=== PATIENT | male | born 1970 | race Caucasian/White ===

== ENCOUNTER 2018-03-27 16:32 | Emergency (ER) | payer BC ==
[2018-03-27 17:07] LABS: Absolute Monocytes 0.5 K/uL (0.1-1.3); Absolute Neutrophil 4.2 K/uL (1.8-8.0); Basophils % 0.6 % (0-1.3); Eosinophils % 0.2 % (0-4.4); Hematocrit 38.6 % (39.6-49.0); Lymphocytes % 29.3 % (15.3-44.8); MCH 29.9 pg (27.0-35.0); MCV 91.9 fL (80-100); MPV 8.1 fL (7.6-11.3); Monocytes % 7.7 % (3.3-12.3)
[2018-03-27 17:13] LABS: Protime INR 1.02
--- NOTE | 2018-03-27 17:17 | RAD REPORT ---
EXAM DESCRIPTION: CT - Head Brain Wo Cont - 03/27/2018 5:01 pm CLINICAL HISTORY: Dizziness and numbness COMPARISON: None. TECHNIQUE: Computed axial tomography of the head was obtained. IV contrast was not requested. All CT scans are performed using dose optimization technique as appropriate and may include automated exposure control or mA/KV adjustment according to patient size. FINDINGS: An intracranial bleed is not seen . The ventricles are normal in caliber. No extra-axial fluid collection is noted. Fluid within the sinuses/ mastoids is not seen. IMPRESSION: No acute intracranial abnormality is seen. If patient's symptoms persist MRI of the bra in would be recommended.
--- NOTE | 2018-03-27 17:23 | EKG ---
Test Date: 2018-03-27 Test Time: 16:51:30 Highway Inspector: YUMI MEASUREMENT RESULTS: Intervals: Rate: 85 MD: 128 QRSD: 106 QT: 374 QTc: 445 [place]: P: 32 MD: 128 QRS: 31 T: 29 INTERPRETIVE STATEMENTS: Normal sinus rhythm Normal ECG Compared to ECG 05/20/2014 16:13:06 No significant changes Electronically Signed On 03-27-18 17:22:44 CDT by Todd Pacheco
[2018-03-27 17:28] LABS: BUN Blood Urea Nitrogen 10 mg/dL (7-18); Bicarbonate 28 mmol/L (21-32); Glucose Level 101 mg/dL (74-106); Magnesium 2.1 mg/dL (1.8-2.4); Potassium 3.2 mmol/L (3.5-5.1); Sodium Level 137 mmol/L (136-145)
--- NOTE | 2018-03-27 17:54 | RAD REPORT ---
EXAM DESCRIPTION: MRI - Brain Wo Cont - 03/27/2018 5:23 pm CLINICAL HISTORY: Slurred speech COMPARISON: Head CT March 27, 2018 TECHNIQUE: Axial, sagittal, and coronal magnetic images of the brain were obtained. Contrast was not requested FINDINGS: No abnormal signal is present within the brain. Diffusion-weighted/ADC mapping does not reveal evidence of acute infarction. The ventricles are normal caliber. An extra-axial fluid collection is not present The sinuses and mastoids are clear. IMPRESSION: Unremarkable unenhanced brain MRI
[2018-03-27] MEDS ORDERED: POTASSIUM CL SA 10 MEQ TAB PO ONE (18:16)
--- NOTE | 2018-03-27 18:29 | EDPHYS ---
Physician Documentation [facility] Name: Sandro Ramirez Age: 47 yrs Sex: Male : 1970 Arrival Date: 03/27/2018 Time: 16:35 Bed 8 Private MD: Elizabeth Reeder H ED Physician Maykel العلي HPI: 03/27 16:53 This 47 yrs old Male presents to ER via Ambulatory with complaints of rn Dizziness, Headache, High Blood Pressure. 16:53 The patient presents with dizziness, generalized weakness, lightheadedness, feeling off rn balance. Onset: The symptoms/episode began/occurred this morning, at 08:30. Modifying factors: The symptoms are alleviated by nothing, the symptoms are aggravated by changing position. Severity of symptoms: At their worst the symptoms were moderate in the emergency department the symptoms have improved. The patient has not experienced similar symptoms in the past. Reports dizziness, off balance, headache, felt like was going to pass out, began this morning around [id number] at work, thought it would go away, reports tingling to perioral region and right arm feels heavy. . Historical: - Allergies: 16:36 No Known Allergies; sg - Home Meds: 16:36 Lisinopril Oral [Active]; sg - PMHx: 16:36 Hypertension; High Cholesterol; sg - PSHx: 16:36 None; sg - Immunization history:: Adult Immunizations up to date. - Social history:: Smoking status: Patient/guardian denies using tobacco, the patient reports quitting approximately 8 years ago. - Ebola Screening: : Patient negative for fever greater than or equal to 101.5 degrees Fahrenheit, and additional compatible Ebola Virus Disease symptoms Patient denies exposure to infectious person Patient denies travel to an Ebola-affected area in the 21 days before illness onset No symptoms or risks identified at this time. - Family history:: not pertinent. - Hospitalizations: : No recent hospitalization is reported. ROS: 16:53 Constitutional: Negative for fever, chills, and weight loss, Eyes: Negative for injury, rn pain, redness, and discharge, Neck: Negative for injury, pain, and swelling, Cardiovascular: Negative for chest pain, palpitations, and edema, Respiratory: Negative for shortness of breath, cough, wheezing, and pleuritic chest pain, Abdomen/GI: Negative for abdominal pain, nausea, vomiting, diarrhea, and constipation, Back: Negative for injury and pain, MS/Extremity: Negative for injury and deformity, Skin: Negative for injury, rash, and discoloration, Neuro: Negative for seizure Exam: 16:53 Constitutional: This is a well developed, well nourished patient who is awake, alert, rn and in no acute distress. Head/Face: Normocephalic, atraumatic. Eyes: Pupils equal round and reactive to light, extra-ocular motions intact. Lids and lashes normal. Conjunctiva and sclera are non-icteric and not injected. Cornea within normal limits. Periorbital areas with no swelling, redness, or edema. Cardiovascular: tachycardic, regular, no murmur Respiratory: Lungs have equal breath sounds bilaterally, clear to auscultation and percussion. No rales, rhonchi or wheezes noted. No increased work of breathing, no retractions or nasal flaring. Abdomen/GI: Soft, non-tender, with normal bowel sounds. No distension or tympany. No guarding or rebound. No evidence of tenderness throughout. MS/ Extremity: Pulses equal, no cyanosis. Neurovascular intact. Full, normal range of motion. Equal circumference. Vital Signs: 16:37 BP 174 / 102; Pulse 100; Resp 18; Temp 99.5; Pulse Ox 100% on R/A; Weight 90.72 kg (R); sg Height 6 ft. 1 in. (185.42 cm); Pain 7/10; 16:52 BP 158 / 92; Pulse 102 MON; Resp 13; Pulse Ox 100% on R/A; sv 17:28 BP 146 / 90; Pulse 75 MON; Resp 15; Pulse Ox 99% on R/A; sv 17:43 BP 135 / 96; Pulse 69; Resp 15; Pulse Ox 99% on R/A; dh3 18:41 BP 141 / 96; Pulse 69; Resp 18; Pulse Ox 100% ; sv 16:37 Body Mass Index 26.39 (90.72 kg, 185.42 cm) sg 16:52 Sinus tachycardia sv 17:28 Sinus Rhythm sv MDM: 16:40 Patient medically screened. rn 18:28 Differential diagnosis: cardiac arrhythmia, CVA, generalized weakness, rn hyperventilation, hypovolemia, idiopathic dizziness, near-syncope, TIA, vertigo. Data reviewed: vital signs, nurses notes, lab test result(s), EKG, radiologic studies, CT scan, MRI, and as a result, I will discharge patient. Counseling: I had a detailed discussion with the patient and/or guardian regarding: the historical points, exam findings, and any diagnostic results supporting the discharge/admit diagnosis, lab results, radiology results, the need for outpatient follow up, to return to the emergency department if symptoms worsen or persist or if there are any questions or concerns that arise at home. Response to treatment: the patient's symptoms have markedly improved after treatment, patient is well hydrated. and as a result, I will discharge patient. Special discussion: I discussed with the patient/guardian in detail that at this point there is no indication for admission to the hospital. It is understood, however, that if the symptoms persist or worsen the patient needs to return immediately for re-evaluation. 03/27 16:50 Order name: Basic Metabolic Panel; Complete Time: 17:03/27 16:50 Order name: CBC with Diff; Complete Time: 17:03/27 16:50 Order name: Magnesium; Complete Time: 17:03/27 16:50 Order name: Protime (+inr); Complete Time: 17:03/27 16:50 Order name: Ptt, Activated; Complete Time: :03/27 16:50 Order name: Troponin (emerg Dept Use Only); Complete Time: 17:50 03/27 16:50 Order name: CT Head Brain wo Cont; Complete Time: 17:03/27 16:50 Order name: EKG; Complete Time: 16:50 03/27 16:50 Order name: Cardiac monitoring; Complete Time: 16:53 03/27 16:50 Order name: EKG - Nurse/Tech; Complete Time: 16:59 03/27 16:50 Order name: IV Saline Lock; Complete Time: 16:59 03/27 16:51 Order name: MRI - Brain Wo Cont; Complete Time: 17:03/27 16:52 Order name: Glucose, Ancillary Testing; Complete Time: 17: EDMS 03/27 16:50 Order name: Labs collected and sent; Complete Time: 16:59 03/27 16:50 Order name: NPO; Complete Time: 16:52 rn 03/27 16:50 Order name: O2 Per Protocol; Complete Time: 16:52 rn 03/27 16:50 Order name: O2 Sat Monitoring; Complete Time: 16:52 rn Administered Medications: 18:29 Drug: Potassium Chloride 40 mEq Route: PO; sv 18:29 Follow up: Response: No adverse reaction sv Point of Care Testing: Blood Glucose: 16:50 Blood Glucose: 114 mg/dL; sv Ranges: Critical Glucose Levels:Adult <50 mg/dl or >400 mg/dl <40 mg/dl or >180 mg/dl Disposition: 03/27/18 18:29 Discharged to Home. Impression: Hypokalemia, Paresthesia of skin, Near Syncope. - Condition is Stable. - Discharge Instructions: Hypertension, Near-Syncope, Paresthesia, Hypokalemia. - Medication Reconciliation Form, Thank You Letter, Antibiotic Education, Prescription Opioid Use form. - Follow up: Elizabeth Reeder DO; When: As needed; Reason: Recheck today's complaints, Re-evaluation by your physician. - Problem is new. - Symptoms have improved. Signatures: Dispatcher [employer] EDMS Pearl Lowe RN RN sv Gay, Steven, RN RN sg Maykel العلي MD MD returned goods sorter: (The following items were deleted from the chart) 18:42 18:29 03/27/2018 18:29 Discharged to Home. Impression: Hypokalemia; Paresthesia of sv skin; Near Syncope. Condition is Stable. Forms are Medication Reconciliation Form, Thank You Letter, Antibiotic Education, Prescription Opioid Use. Follow up: Elizabeth Reeder; When: As needed; Reason: Recheck today's complaints, Re-evaluation by your physician. Problem is new. Symptoms have improved. rn
--- NOTE | 2018-03-27 18:29 | ER ---
Nurse's Notes [facility] Name: Sandro Ramirez Age: 47 yrs Sex: Male : 1970 Arrival Date: 03/27/2018 Time: 16:35 Bed 8 Private MD: Elizabeth Reeder H Diagnosis: Hypokalemia;Paresthesia of skin;Near Syncope Presentation: 03/27 16:38 Presenting complaint: Patient states: Dizziness, Midsternal CP that started today, sg episodes of forgetfullness today at work, tingling in the lips that happened around 1100 today. Transition of care: patient was not received from another setting of care. Onset of symptoms was March 27, 2018. Risk Assessment: Do you want to hurt yourself or someone else? Patient reports no desire to harm self or others. Initial Sepsis Screen: Does the patient meet any 2 criteria? No. Patient's initial sepsis screen is negative. Does the patient have a suspected source of infection? No. Patient's initial sepsis screen is negative. Care prior to arrival: None. 16:38 Method Of Arrival: Ambulatory sg 16:38 Acuity: JUAN CARLOS 3 sg Historical: - Allergies: 16:36 No Known Allergies; sg - Home Meds: 16:36 Lisinopril Oral [Active]; sg - PMHx: 16:36 Hypertension; High Cholesterol; sg - PSHx: 16:36 None; sg - Immunization history:: Adult Immunizations up to date. - Social history:: Smoking status: Patient/guardian denies using tobacco, the patient reports quitting approximately 8 years ago. - Ebola Screening: : Patient negative for fever greater than or equal to 101.5 degrees Fahrenheit, and additional compatible Ebola Virus Disease symptoms Patient denies exposure to infectious person Patient denies travel to an Ebola-affected area in the 21 days before illness onset No symptoms or risks identified at this time. - Family history:: not pertinent. - Hospitalizations: : No recent hospitalization is reported. Screenin:41 Abuse screen: Denies threats or abuse. Denies injuries from another. Nutritional sv screening: No deficits noted. Tuberculosis screening: No symptoms or risk factors identified. Fall Risk None identified. Assessment: 16:45 General: Appears in no apparent distress. well developed, Behavior is cooperative, sv anxious, Reports that while he was at work today he couldn't remember how to do something at work that he does all the time. Pain: Complains of pain in face Pain currently is 7 out of 10 on a pain scale. Pain began 0800. Neuro: Level of Consciousness is awake, alert, obeys commands, Oriented to person, place, time, situation, Moves all extremities. Full function Gait is steady, Speech is normal, Facial symmetry appears normal, Facial symmetry: tongue is midline, reports that he is hesitant to answer questions.. Neuro: Reports dizziness, headache numbness in right arm and right upper and lower lips and cheek weakness. Cardiovascular: Patient's skin is warm and dry. Rhythm is sinus tachycardia. Respiratory: Respiratory effort is even, unlabored, Respiratory pattern is regular, symmetrical. Derm: Skin is pink, warm \\T\\ dry. Musculoskeletal: Range of motion: intact in all extremities, Reports "behind the left leg is feels like I'm going to have a cramp.". 17:28 Reassessment: Patient appears in no apparent distress at this time. No changes from sv previously documented assessment. Patient and/or family updated on plan of care and expected duration. Pain level reassessed. Patient is alert, oriented x 3, equal unlabored respirations, skin warm/dry/pink. 18:41 Reassessment: Patient appears in no apparent distress at this time. No changes from sv previously documented assessment. Patient and/or family updated on plan of care and expected duration. Pain level reassessed. Patient is alert, oriented x 3, equal unlabored respirations, skin warm/dry/pink. Vital Signs: 16:37 BP 174 / 102; Pulse 100; Resp 18; Temp 99.5; Pulse Ox 100% on R/A; Weight 90.72 kg (R); sg Height 6 ft. 1 in. (185.42 cm); Pain 7/10; 16:52 BP 158 / 92; Pulse 102 MON; Resp 13; Pulse Ox 100% on R/A; sv 17:28 BP 146 / 90; Pulse 75 MON; Resp 15; Pulse Ox 99% on R/A; sv 17:43 BP 135 / 96; Pulse 69; Resp 15; Pulse Ox 99% on R/A; dh3 18:41 BP 141 / 96; Pulse 69; Resp 18; Pulse Ox 100% ; sv 16:37 Body Mass Index 26.39 (90.72 kg, 185.42 cm) sg 16:52 Sinus tachycardia sv 17:28 Sinus Rhythm sv ED Course: 16:35 Patient arrived in ED. sg 16:35 Elizabeth Reeder DO is Private Physician. sg 16:37 Arm band placed on. sg 16:39 Triage completed. sg 16:39 Maykel العلي MD is Attending Physician. rn 16:40 Pearl Lowe, RN is Primary Nurse. sv 16:41 Patient has correct armband on for positive identification. Bed in low position. Adult sv w/ patient. 16:45 ED physician to see patient. sv 16:45 ekg monitor on. Pulse ox on. NIBP on. Door closed. Head of bed elevated. sv 16:52 Initial lab(s) drawn, by ED staff, sent to lab. Inserted saline lock: 18 gauge in right sv antecubital area, using aseptic technique. Blood collected. 16:[address] via wheelchair. sj 17:01 CT completed. Patient tolerated procedure well. Patient moved to MRI. sj 17:01 CT Head Brain wo Cont In Process Unspecified. EDMS 17:11 MRI - Brain Wo Cont In Process Unspecified. EDMS 17:18 EKG done, by roadway technician. reviewed by Maykel العلي MD. sm3 17:22 MRI completed. Patient tolerated well. Note: . Patient moved back from MRI. ka 18:29 Elizabeth Reeder DO is Referral Physician. rn 18:41 No provider procedures requiring assistance completed. IV discontinued, intact, sv bleeding controlled, No redness/swelling at site. Pressure dressing applied. Administered Medications: 18:29 Drug: Potassium Chloride 40 mEq Route: PO; sv 18:29 Follow up: Response: No adverse reaction sv Point of Care Testing: Blood Glucose: 16:50 Blood Glucose: 114 mg/dL; sv Ranges: Outcome: 18:29 Discharge ordered by MD. rn 18:41 Discharged to home ambulatory, with family. sv 18:41 Condition: stable 18:41 Discharge instructions given to patient, Instructed on discharge instructions, follow up and referral plans. Demonstrated understanding of instructions, follow-up care. 18:42 Patient left the ED. sv Signatures: Dispatcher [employer] EDMS Chrissy, Pearl, RN RN sv Greer, Srikanth, Betty Molina RN, Roman, MD MD rn Aguilera, Katelyn ka Herrera, Deanna [facility] Nighat Diaz 3 Corrections: (The following items were deleted from the chart) 17:30 16:45 General: Appears in no apparent distress. well developed, Behavior is sv cooperative, anxious, sv
== END 2018-03-27 18:42 | disposition home or self-care (01) ==
LOC: ER 16:32
DX: E87.6 Hypokalemia (principal); R20.2 Paresthesia of skin; I10 Essential (primary) hypertension; E78.00 Pure hypercholesterolemia, unspecified
CPT/HCPCS: 36415; 70450; 70551; 80048; 82962; 83735; 84484; 85025; 85610; 85730; 93005; 99285

== ENCOUNTER 2019-07-15 06:26 | Emergency (ER) | payer BC ==
[2019-07-15] MEDS ORDERED: MORPHINE 4 MG/ML SYR ONE (06:42)
[2019-07-15] MEDS ORDERED: ONDANSETRON 4 MG/2 ML VIAL ONE (06:42)
[2019-07-15] MEDS ORDERED: NA CHLORIDE 0.9% 1,000 ML ONE (06:42)
[2019-07-15 06:54] LABS: Absolute Lymphocytes (CBC) 1.6 K/uL (0.7-4.9); Basophils % 0.9 % (0-1.3); Lymphocytes % 13.4 % (15.3-44.8); MPV 9.1 fL (7.6-11.3); RBC Red Blood Cell Count 4.33 M/uL (4.33-5.43)
[2019-07-15 07:46] LABS: BUN Blood Urea Nitrogen 8 mg/dL (7-18); Bicarbonate 26 mmol/L (21-32); Glucose Level 118 mg/dL (74-106); Potassium 3.7 mmol/L (3.5-5.1); Sodium Level 141 mmol/L (136-145)
[2019-07-15] MEDS ORDERED: FENTANYL CITR 100 MCG/2 ML ONE (07:58)
--- NOTE | 2019-07-15 08:22 | RAD REPORT ---
EXAM DESCRIPTION: CT - Abdomen Pelvis W Contrast - 07/15/2019 8:11 am CLINICAL HISTORY: ABD PAIN, left lower quadrant pain COMPARISON: None TECHNIQUE: Biphasic, helical CT imaging of the abdomen and pelvis was performed following 100 ml non -ionic IV contrast. Oral contrast was given. All CT scans are performed using dose optimization technique as appropriate and may include automated exposure control or mA/KV adjustment according to patient size. FINDINGS: No suspicious findings in the lung bases. The liver, spleen, and pancreas show no suspicious findings. Gallbladder and biliary tree are also wi thout suspicious finding. Symmetric renal function is seen with no hydronephrosis or suspicious renal mass. No pyelonephritis o r acute parenchymal process. No bladder abnormalities. No adrenal abnormalities. Stomach and small bowel show no acute findings. No appendicitis. From cecum through descending portio ns the colon is unremarkable. Proximal sigmoid colon shows 7 centimeter long segment of circumferenti al wall thickening. Stranding is present in the adjacent fat. There is diverticulosis in this region. Asymmetric prominent air collection along 1 wall is seen. No clearly extraluminal air present. No ab scess, free air or abnormal free fluid collection. Rectum and distal sigmoid colon show no acute find ings. No mass or bulky lymphadenopathy. No omental thickening. Patient has small fat only bilateral ingui nal hernias. No suspicious bony findings. Disc and bony degenerative change present at L5-S1. No acute vascular finding. IMPRESSION: Acute sigmoid diverticulitis. No abscess, free air or surgically emergent finding.
--- NOTE | 2019-07-15 08:32 | ER ---
Nurse's Notes [facility] Name: Sandro Ramirez Age: 48 yrs Sex: Male : 1970 Arrival Date: 07/15/2019 Time: 06:29 Bed 5 Private MD: Elizabeth Reeder H Diagnosis: Diverticulitis of intestine, part unspecified, without perforation or abscess without bleeding Presentation: 07/15 06:37 Presenting complaint: Patient states: LLQ pain x 1 week. Denies N/V/D or fever. aa1 Transition of care: patient was not received from another setting of care. Onset of symptoms was July 08, 2019. Risk Assessment: Do you want to hurt yourself or someone else? Patient reports no desire to harm self or others. Initial Sepsis Screen: Does the patient meet any 2 criteria? HR > 90 bpm. Does the patient have a suspected source of infection? Yes: Acute abdominal pain. Care prior to arrival: None. 06:37 Method Of Arrival: Ambulatory aa1 06:37 Acuity: JUAN CARLOS 3 aa1 Triage Assessment: 06:39 General: Appears in no apparent distress. comfortable, Behavior is calm, cooperative, aa1 appropriate for age. Historical: - Allergies: 06:39 unknown anti-inflammatory; aa1 - Home Meds: 06:39 Omeprazole Oral [Active]; Tylenol #3 Oral [Active]; Simvastatin Oral [Active]; Ambien aa1 Oral [Active]; Xanax Oral [Active]; - PMHx: 06:39 High Cholesterol; Hypertension; Anxiety; GERD; aa1 - PSHx: 06:39 None; aa1 - Immunization history:: Flu vaccine is not up to date. - Social history:: Smoking status: Patient/guardian denies using tobacco. - Ebola Screening: : No symptoms or risks identified at this time. Screenin:47 Abuse screen: Denies threats or abuse. Denies injuries from another. Nutritional ak1 screening: No deficits noted. Tuberculosis screening: No symptoms or risk factors identified. Fall Risk Gait- Impaired (20 pts.). Assessment: 06:45 Reassessment: pt stated he has been taking "over the counter water pills every day, 4 a ak1 day for the swelling in my foot" provider notified. General: Appears in no apparent distress. Behavior is cooperative, anxious. Pain: Complains of pain in abdomen. Neuro: No deficits noted. Cardiovascular: Rhythm is sinus tachycardia. Respiratory: Airway is patent Respiratory effort is even, unlabored. GI: Abdomen is round non-distended, Reports lower abdominal pain. : No signs and/or symptoms were reported regarding the genitourinary system. EENT: No signs and/or symptoms were reported regarding the EENT system. Derm: No signs and/or symptoms reported regarding the dermatologic system. Musculoskeletal: No signs and/or symptoms reported regarding the musculoskeletal system. 07:15 Reassessment: Chem 7 redrawn and sent to lab. aa5 07:15 General: Appears comfortable, Behavior is calm, cooperative, Pt sitting up in bed aa5 watching TV. . Pain: Complains of pain in left lower quadrant and right foot Pain does not radiate. Pain currently is 8 out of 10 on a pain scale. Quality of pain is described as sharp, Pain began Pt states "I broke my foot about 4 weeks ago and my stomach started hurting last night" Is continuous. Neuro: Level of Consciousness is awake, alert, obeys commands, Oriented to person, place, time, situation. Cardiovascular: Heart tones S1 S2 present Rhythm is regular. Respiratory: Airway is patent Respiratory effort is even, unlabored, Respiratory pattern is regular, symmetrical. GI: Abdomen is round non-distended, Bowel sounds present X 4 quads. Abd is soft and non tender X 4 quads. Reports lower abdominal pain, Patient currently denies nausea, vomiting. : No signs and/or symptoms were reported regarding the genitourinary system. EENT: No signs and/or symptoms were reported regarding the EENT system. Derm: Skin is pink, warm \\T\\ dry. Musculoskeletal: Range of motion: intact in all extremities, Swelling present in right foot Bandage noted to right foot, pt states "I go to see the doctor every week and he takes off the old bandage and puts a new one on but he says the foot fracture is not healing yet". 07:15 Reassessment: Pt notified of wait time for complete lab results and for CT scan. . aa5 08:00 Reassessment: Patient is alert, oriented x 3, equal unlabored respirations, skin aa5 warm/dry/pink. Pt c/o increased abd pain, pt requesting pain medication at this time. FLUID JET CUTTER OPERATOR was notified. . General: Appears uncomfortable. 08:02 Reassessment: Pt taken to CT via stretcher . aa5 08:50 Reassessment: Patient is alert, oriented x 3, equal unlabored respirations, skin aa5 warm/dry/pink. Vital Signs: 06:39 BP 129 / 85; Pulse 137; Resp 18; Temp 98.2; Pulse Ox 96% on R/A; Weight 100.7 kg; aa1 Height 6 ft. 1 in. (185.42 cm); Pain 7/10; 07:25 BP 130 / 89; Pulse 104; Resp 18 S; Pulse Ox 98% on R/A; aa5 08:08 BP 118 / 80; Pulse 103; Resp 17; Pulse Ox 97% on R/A; tw2 08:45 BP 121 / 83; Pulse 99; Resp 18 S; Temp 98.0(TE); Pulse Ox 97% ; aa5 06:39 Body Mass Index 29.29 (100.70 kg, 185.42 cm) aa1 ED Course: 06:29 Patient arrived in ED. es 06:30 Elizabeth Reeder DO is Private Physician. es 06:30 [facility] kb 06:30 Maykel العلي MD is Attending Physician. kb 06:37 Triage completed. aa1 06:39 Arm band placed on right wrist. aa1 06:46 Initial lab(s) drawn, by me, sent to lab. Inserted saline lock: 20 gauge in right ak1 antecubital area, using aseptic technique. Blood collected. 06:47 Patient has correct armband on for positive identification. Call light in reach. Side ak1 rails up X 1. Adult w/ patient. Pulse ox on. NIBP on. 07:09 Chloe Leal, ALEXY is Primary Nurse. tw2 08:01 X-ray completed. Portable x-ray completed in exam room. jb2 08:11 CT Abd/Pelvis - IV Contrast Only In Process Unspecified. EDMS 08:50 No provider procedures requiring assistance completed. intact, bleeding controlled, No aa5 redness/swelling at site. Pressure dressing applied. Administered Medications: 06:49 Drug: NS 0.9% 1000 ml Route: IV; Rate: 1000 ml; Site: right antecubital; ea 08:00 Follow up: IV Status: Completed infusion; IV Intake: 1000ml aa5 06:49 Drug: morphine 4 mg {Note: RASS 0.} Route: IVP; Site: right antecubital; ea 07:15 Follow up: Response: No adverse reaction; Pain is decreased aa5 06:49 Drug: Zofran 4 mg Route: IVP; Site: right antecubital; ea 07:15 Follow up: Response: No adverse reaction aa5 08:02 Drug: fentaNYL (PF) 25 mcg Route: IVP; Site: right antecubital; aa5 08:30 Follow up: Response: No adverse reaction aa5 08:45 Drug: Flagyl 500 mg Route: PO; aa5 08:45 Follow up: Response: No adverse reaction; Medication administered at discharge. aa5 08:45 Drug: Cipro 500 mg Route: PO; aa5 08:45 Follow up: Response: No adverse reaction; Medication administered at discharge. aa5 08:45 Drug: fentaNYL (PF) 25 mcg Route: IVP; Site: right antecubital; aa5 08:50 Follow up: Response: No adverse reaction aa5 Intake: 08:00 IV: 1000ml; Total: 1000ml. aa5 Outcome: 08:31 Discharge ordered by MD. ribera 08:50 Discharged to home via wheelchair, with significant other. aa5 08:50 Condition: stable 08:50 Discharge instructions given to patient, Instructed on discharge instructions, follow up and referral plans. medication usage, Demonstrated understanding of instructions, follow-up care, medications, Prescriptions given X 3. 08:51 Patient left the ED. aa5 Signatures: Dispatcher [employer] EDAlice Gallagher, STACI-C ASSEMBLER INSTALLER GENERAL-CkSamia Wang RN RN aa1 Beverly Nick Jesse jb2 Rose Mary Ly RN RN aa5 Court Ham RN RN musa1 Chloe Leal RN RN tw2 Stefanie Fountain RN RN marques Corrections: (The following items were deleted from the chart) 07:30 07:15 General: Appears comfortable, Behavior is calm, cooperative, aa5 aa5 08:56 08:56 Patient left the ED. aa5 aa5
--- NOTE | 2019-07-15 08:33 | EDPHYS ---
Physician Documentation [facility] Name: Sandro Ramirez Age: 48 yrs Sex: Male : 1970 Arrival Date: 07/15/2019 Time: 06:29 Bed 5 Private MD: Elizabeth Reeder H ED Physician Maykel العلي HPI: 07/15 06:46 This 48 yrs old Male presents to ER via Ambulatory with complaints of kb Abdominal Pain. 06:46 The patient presents with abdominal pain in the left lower quadrant. Onset: The kb symptoms/episode began/occurred 1 week(s) ago. The symptoms do not radiate. Associated signs and symptoms: none. The symptoms are described as constant. Modifying factors: The symptoms are alleviated by nothing, the symptoms are aggravated by pressure. Severity of pain: At its worst the pain was moderate in the emergency department the pain is unchanged. The patient has not experienced similar symptoms in the past. The patient has not recently seen a physician. Pt reports LLQ pain that started a week ago, got worse last night. Denies f/n/v/d. Has not had this pain in the past. Has a foot fracture on the right and has been taking "water pills" four times a day for the swelling. . Historical: - Allergies: 06:39 unknown anti-inflammatory; aa1 - Home Meds: 06:39 Omeprazole Oral [Active]; Tylenol #3 Oral [Active]; Simvastatin Oral [Active]; Ambien aa1 Oral [Active]; Xanax Oral [Active]; - PMHx: 06:39 High Cholesterol; Hypertension; Anxiety; GERD; aa1 - PSHx: 06:39 None; aa1 - Immunization history:: Flu vaccine is not up to date. - Social history:: Smoking status: Patient/guardian denies using tobacco. - Ebola Screening: : No symptoms or risks identified at this time. ROS: 06:42 Constitutional: Negative for fever, chills, and weight loss, Cardiovascular: Negative kb for chest pain, palpitations, and edema, Respiratory: Negative for shortness of breath, cough, wheezing, and pleuritic chest pain, Back: Negative for injury and pain, : Negative for injury, bleeding, discharge, and swelling, MS/Extremity: Negative for injury and deformity, Skin: Negative for injury, rash, and discoloration, Neuro: Negative for headache, weakness, numbness, tingling, and seizure. 06:42 Abdomen/GI: Positive for abdominal pain, Negative for nausea, vomiting, and diarrhea, constipation, abdominal cramps, abdominal distension, anorexia. Exam: 06:42 Constitutional: This is a well developed, well nourished patient who is awake, alert, kb and in no acute distress. Head/Face: Normocephalic, atraumatic. Neck: Trachea midline, no thyromegaly or masses palpated, and no cervical lymphadenopathy. Supple, full range of motion without nuchal rigidity, or vertebral point tenderness. No Meningismus. Chest/axilla: Normal chest wall appearance and motion. Nontender with no deformity. No lesions are appreciated. Cardiovascular: Regular rate and rhythm with a normal S1 and S2. No gallops, murmurs, or rubs. Normal PMI, no JVD. No pulse deficits. Respiratory: Lungs have equal breath sounds bilaterally, clear to auscultation and percussion. No rales, rhonchi or wheezes noted. No increased work of breathing, no retractions or nasal flaring. Back: No spinal tenderness. No costovertebral tenderness. Full range of motion. Skin: Warm, dry with normal turgor. Normal color with no rashes, no lesions, and no evidence of cellulitis. MS/ Extremity: Pulses equal, no cyanosis. Neurovascular intact. Full, normal range of motion. Neuro: Awake and alert, GCS 15, oriented to person, place, time, and situation. Cranial nerves II-XII grossly intact. Motor strength 5/5 in all extremities. Sensory grossly intact. Cerebellar exam normal. Normal gait. 06:42 Abdomen/GI: Inspection: abdomen appears normal, Bowel sounds: normal, in all quadrants, Palpation: soft, in all quadrants, moderate abdominal tenderness, in the left lower quadrant. Vital Signs: 06:39 BP 129 / 85; Pulse 137; Resp 18; Temp 98.2; Pulse Ox 96% on R/A; Weight 100.7 kg; aa1 Height 6 ft. 1 in. (185.42 cm); Pain 7/10; 07:25 BP 130 / 89; Pulse 104; Resp 18 S; Pulse Ox 98% on R/A; aa5 08:08 BP 118 / 80; Pulse 103; Resp 17; Pulse Ox 97% on R/A; tw2 08:45 BP 121 / 83; Pulse 99; Resp 18 S; Temp 98.0(TE); Pulse Ox 97% ; aa5 06:39 Body Mass Index 29.29 (100.70 kg, 185.42 cm) aa1 MDM: 06:32 Patient medically screened. kb 06:41 Data reviewed: vital signs, nurses notes. Data interpreted: Pulse oximetry: on room air kb is 96 %. Interpretation: normal. 08:30 Counseling: I had a detailed discussion with the patient and/or guardian regarding: the kb historical points, exam findings, and any diagnostic results supporting the discharge/admit diagnosis, lab results, radiology results, the need for outpatient follow up, a family practitioner, a test eng, to return to the emergency department if symptoms worsen or persist or if there are any questions or concerns that arise at home. ED course: PT given option of admission or outpatient treatment. Pt would like to try outpatient oral antibiotics first. Pt educated on importance of returning for significant increase in pain or inability to tolerate medications. Verbal understanding received. . 07/15 06:39 Order name: Basic Metabolic Panel; Complete Time: 07:47 kb 07/15 06:39 Order name: CBC with Diff; Complete Time: 07:05 kb 07/15 06:39 Order name: CT Abd/Pelvis - IV Contrast Only; Complete Time: 08:24 kb 07/15 06:39 Order name: IV Saline Lock; Complete Time: 06:47 kb 07/15 06:39 Order name: Labs collected and sent; Complete Time: 06:47 kb Administered Medications: 06:49 Drug: NS 0.9% 1000 ml Route: IV; Rate: 1000 ml; Site: right antecubital; ea 08:00 Follow up: IV Status: Completed infusion; IV Intake: 1000ml aa5 06:49 Drug: morphine 4 mg {Note: RASS 0.} Route: IVP; Site: right antecubital; ea 07:15 Follow up: Response: No adverse reaction; Pain is decreased aa5 06:49 Drug: Zofran 4 mg Route: IVP; Site: right antecubital; ea 07:15 Follow up: Response: No adverse reaction aa5 08:02 Drug: fentaNYL (PF) 25 mcg Route: IVP; Site: right antecubital; aa5 08:30 Follow up: Response: No adverse reaction aa5 08:45 Drug: Flagyl 500 mg Route: PO; aa5 08:45 Follow up: Response: No adverse reaction; Medication administered at discharge. aa5 08:45 Drug: Cipro 500 mg Route: PO; aa5 08:45 Follow up: Response: No adverse reaction; Medication administered at discharge. aa5 08:45 Drug: fentaNYL (PF) 25 mcg Route: IVP; Site: right antecubital; aa5 08:50 Follow up: Response: No adverse reaction aa5 Disposition: 07/15/19 08:31 Discharged to Home. Impression: Diverticulitis of intestine, part unspecified, without perforation or abscess without bleeding. - Condition is Stable. - Discharge Instructions: Diverticulitis, [id number]. - Prescriptions for Flagyl 500 mg Oral Tablet - take 1 tablet by ORAL route every 8 hours for 10 days; 30 tablet. Zofran 4 mg Oral Tablet - take 1 tablet by ORAL route every 6 hours As needed; 20 tablet. Cipro 500 mg Oral Tablet - take 1 tablet by ORAL route every 12 hours for 10 days; 20 tablet. - Medication Reconciliation Form, Thank You Letter, Antibiotic Education, Prescription Opioid Use, Work release form form. - Follow up: Emergency Department; When: As needed; Reason: Worsening of condition. Follow up: Private Physician; When: 2 - 3 days; Reason: Recheck today's complaints, Continuance of care, Re-evaluation by your physician. Addendum: 07/19/2019 07:10 Co-signature as Attending Physician, Maykel العلي MD. r n Signatures: Dispatcher [employer] [facility] Alice Carrera, STACI-C DATABASE CONSULTANT-CkSamia Wang RN RN aa1 Maykel العلي MD MD rn Calderon, Audri RN RN aa5 Stefanie Fountain RN RN ea Corrections: (The following items were deleted from the chart) 07/15 08:56 08:31 07/15/2019 08:31 Discharged to Home. Impression: Diverticulitis of intestine, aa5 part unspecified, without perforation or abscess without bleeding. Condition is Stable. Forms are Work release form, Medication Reconciliation Form, Thank You Letter, Antibiotic Education, Prescription Opioid Use. Follow up: Emergency Department; When: As needed; Reason: Worsening of condition. Follow up: Private Physician; When: 2 - 3 days; Reason: Recheck today's complaints, Continuance of care, Re-evaluation by your physician. kb
[2019-07-15] MEDS ORDERED: metroNIDAZOLE 500 MG TABLET ONE (08:39)
[2019-07-15] MEDS ORDERED: CIPROFLOXACIN HCL 500 MG TAB ONE (08:39)
[2019-07-15 09:05] VITALS: O2SAT 97
[2019-07-15 09:06] VITALS: BP 121/83; TEMP 98
[2019-07-15] MEDS ORDERED: ASPIRIN 81 MG CHEWABLE TABLET ONE (10:37)
== END 2019-07-15 08:56 | disposition home or self-care (01) ==
LOC: ER 06:26
DX: K57.92 Diverticulitis of intestine, part unspecified, without perforation or abscess without bleeding (principal); I10 Essential (primary) hypertension; F41.9 Anxiety disorder, unspecified; E78.00 Pure hypercholesterolemia, unspecified; K21.9 Gastro-esophageal reflux disease without esophagitis
CPT/HCPCS: 96361; 85025; 80048; 36415; 74177; 96375; 96374; 99284; Q9967; J3010; J7030; J2405

== ENCOUNTER 2019-07-16 05:45 | Inpatient (IN) | payer BC ==
[2019-07-16] MEDS ORDERED: NA CHLORIDE 0.9% 3,000 ML ONE (06:14)
[2019-07-16] MEDS ORDERED: PIPER/TAZO/NS 3.375gm 3.375 GM/100 ML BAG ONE (06:21)
[2019-07-16] MEDS ORDERED: MORPHINE 4 MG/ML SYR ONE ×2 (06:21→08:48)
[2019-07-16] MEDS ORDERED: ONDANSETRON 4 MG/2 ML VIAL ONE ×2 (06:23→08:48)
[2019-07-16 06:37] LABS: Basophils % 0.3 % (0-1.3); Hematocrit 35.2 % (39.6-49.0); Lymphocytes % 8.9 % (15.3-44.8); MPV 8.5 fL (7.6-11.3)
[2019-07-16 06:54] LABS: Albumin 3.5 g/dL (3.4-5.0); Bilirubin Direct 0.2 mg/dL (0-0.2); Bilirubin Total 0.7 mg/dL (0.2-1.0); Potassium 3.4 mmol/L (3.5-5.1); Protein, Total 6.9 g/dL (6.4-8.2)
--- NOTE | 2019-07-16 07:13 | ER ---
Nurse's Notes [facility] Name: Sandro Ramirez Age: 48 yrs Sex: Male : 1970 Arrival Date: 07/16/2019 Time: 05:47 Bed 5 Private MD: Elizabeth Reeder H Diagnosis: Diverticulitis of large intestine without perforation or abscess without bleeding;Fever, unspecified Presentation: 07/16 06:05 Presenting complaint: Patient states: lower abd pain, burning sensation. pt c/o ak1 increased lower abd pain with urination. pt denies N/V/D. pt stated he took a tylenol #3 last night. pt stated pain woke him at 0430. pt was seen and discharged from ER yesterday dx diverticulitis given flagyl 500mg and cipro 500mg and zofran 4mg. Transition of care: patient was not received from another setting of care. Onset of symptoms was July 16, 2019. Risk Assessment: Do you want to hurt yourself or someone else? Patient reports no desire to harm self or others. Initial Sepsis Screen: Does the patient meet any 2 criteria? No. Patient's initial sepsis screen is negative. Does the patient have a suspected source of infection? No. Patient's initial sepsis screen is negative. Care prior to arrival: None. 06:05 Method Of Arrival: Ambulatory ak1 06:05 Acuity: JUAN CARLOS 3 ak1 Triage Assessment: 06:06 General: Appears in no apparent distress. Behavior is appropriate for age. Pain: ea Complains of pain in abdomen. Respiratory: Airway is patent Respiratory effort is even, unlabored, Respiratory pattern is regular, symmetrical. Derm: Skin is pink, warm \T\ dry. Historical: - Allergies: 06:09 etodolac; ak1 - Home Meds: 06:09 Tylenol #3 Oral [Active]; Xanax Oral [Active]; Simvastatin Oral [Active]; Omeprazole ak1 Oral [Active]; - PMHx: 06:09 Anxiety; GERD; High Cholesterol; ak1 - PSHx: 06:09 None; ak1 - Immunization history:: Adult Immunizations unknown. - Social history:: Smoking status: Patient/guardian denies using tobacco. - Ebola Screening: : No symptoms or risks identified at this time. Screenin:05 Abuse screen: Denies threats or abuse. Nutritional screening: No deficits noted. ea Tuberculosis screening: No symptoms or risk factors identified. Fall Risk None identified. Assessment: 06:18 General: Appears in no apparent distress. Behavior is calm, cooperative. Pain: ak1 Complains of pain in abdomen. Neuro: Level of Consciousness is awake, alert, obeys commands, Oriented to person, place, time, situation, Moves all extremities. Full function. Cardiovascular: Rhythm is sinus tachycardia. Respiratory: Airway is patent Respiratory effort is even, unlabored. GI: Reports lower abdominal pain, Patient currently denies diarrhea, nausea, vomiting. : Reports pain in suprapubic area with urination. EENT: No signs and/or symptoms were reported regarding the EENT system. Derm: fever 100.5. Musculoskeletal: No signs and/or symptoms reported regarding the musculoskeletal system. 07:15 Reassessment: Patient appears in no apparent distress at this time. Patient and/or hb family updated on plan of care and expected duration. Pain level reassessed. Patient is alert, oriented x 3, equal unlabored respirations, skin warm/dry/pink. 08:00 Reassessment: Patient appears in no apparent distress at this time. Patient and/or hb family updated on plan of care and expected duration. Pain level reassessed. Patient is alert, oriented x 3, equal unlabored respirations, skin warm/dry/pink. Admission ordered, awaiting room assignment at this time. Family remains at bedside. 08:53 Reassessment: Pt reports lower abdominal pain 8/10. DARLYN Zuñiga notified, repeat Morphine hb and Zofran administered as ordered. VSS. 09:14 Reassessment: Attempted to call report to floor, receiving nurse unavailable at this hb time. Vital Signs: 06:04 BP 126 / 85; Pulse 122; Resp 18; Temp 100.5; Pulse Ox 97% on R/A; Weight 99.79 kg; ea Height 6 ft. 0 in. (182.88 cm); Pain 8/10; 07:54 BP 126 / 85; Pulse 85; Resp 16; Temp 98.8(TE); Pulse Ox 100% on R/A; Pain 3/10; hb 08:45 BP 131 / 90; Pulse 83; Resp 15; Pulse Ox 100% on R/A; Pain 8/10; hb 06:04 Body Mass Index 29.84 (99.79 kg, 182.88 cm) ea ED Course: 05:47 Patient arrived in ED. es 05:50 Elizabeth Reeder DO is Private Physician. es 06:06 Patient has correct armband on for positive identification. Placed in gown. Bed in low ea position. Call light in reach. Side rails up X2. 06:06 Arm band placed on right wrist. Patient placed in an exam room, on a stretcher, on ea pulse oximetry. 06:07 Yogesh Salazar PA is PHCP. jr8 06:07 Gideon Gonzalez MD is Attending Physician. jr8 06:07 Triage completed. ak1 06:16 Court Ham RN is Primary Nurse. ak1 06:25 First set of blood cultures drawn. ar5 06:30 Inserted saline lock: 20 gauge in right antecubital area, using aseptic technique. ar5 Blood collected. 07:11 Estephanie Bangura MD is Hospitalizing Provider. jr8 09:35 No provider procedures requiring assistance completed. Patient admitted, IV remains in hb place. Administered Medications: 06:25 Drug: NS 0.9% (30 ml/kg) 30 ml/kg Route: IV; Rate: bolus; Site: left antecubital; ea 09:36 Follow up: Response: No adverse reaction; IV Status: Completed infusion; IV Intake: hb 3000ml 06:25 Drug: morphine 4 mg Route: IVP; Site: left antecubital; ea 06:54 Follow up: Response: No adverse reaction; RASS: Alert and Calm (0) ea 06:25 Drug: Zofran 4 mg Route: IVP; Site: left antecubital; ea 06:54 Follow up: Response: No adverse reaction ea 06:53 Drug: Zosyn 3.375 grams Route: IVPB; Infused Over: 60 mins; Site: left antecubital; ea 07:55 Follow up: Response: No adverse reaction; IV Status: Completed infusion; IV Intake: hb 100ml 08:51 Drug: morphine 4 mg Route: IVP; Site: left antecubital; hb 09:36 Follow up: Response: No adverse reaction; Pain is decreased; RASS: Alert and Calm (0) hb 08:51 Drug: Zofran 4 mg Route: IVP; Site: left antecubital; hb 09:36 Follow up: Response: No adverse reaction hb Intake: 07:55 IV: 100ml; Total: 100ml. hb 09:36 IV: 3000ml; Total: 3100ml. hb Outcome: 07:12 Decision to Hospitalize by Provider. jr8 09:35 Admitted to Med/surg accompanied by tech, via wheelchair, room 209, with chart. hb 09:35 Condition: stable 09:35 Instructed on the need for admit, Demonstrated understanding of instructions. 09:46 Patient left the ED. hb Signatures: Beverly Nick Josh, PA PA jr8 Court Ham RN RN ak1 Barb Will RN RN Stefanie Stout RN RN Marilu Palmer ar5
--- NOTE | 2019-07-16 07:13 | EDPHYS ---
Physician Documentation [facility] Name: Sandro Ramirez Age: 48 yrs Sex: Male : 1970 Arrival Date: 07/16/2019 Time: 05:47 Bed 5 Private MD: Elizabeth Reeder H ED Physician Gideon Gonzalez HPI: 07/16 06:22 This 48 yrs old Male presents to ER via Ambulatory with complaints of abd jr8 pain. 06:22 Onset: The symptoms/episode began/occurred yesterday. Associated signs and symptoms: jr8 Pertinent positives: fever. The patient has experienced a previous episode. Pt was here yesterday for diverticulitis, back with worsening pain and fever. . Historical: - Allergies: 06:09 etodolac; ak1 - Home Meds: 06:09 Tylenol #3 Oral [Active]; Xanax Oral [Active]; Simvastatin Oral [Active]; Omeprazole ak1 Oral [Active]; - PMHx: 06:09 Anxiety; GERD; High Cholesterol; ak1 - PSHx: 06:09 None; ak1 - Immunization history:: Adult Immunizations unknown. - Social history:: Smoking status: Patient/guardian denies using tobacco. - Ebola Screening: : No symptoms or risks identified at this time. ROS: 06:22 Constitutional: + fever Eyes: Negative for injury, pain, redness, and discharge, ENT: jr8 Negative for injury, pain, and discharge, Neck: Negative for injury, pain, and swelling, Cardiovascular: Negative for chest pain, palpitations, and edema, Respiratory: Negative for shortness of breath, cough, wheezing, and pleuritic chest pain, Back: Negative for injury and pain, MS/Extremity: Negative for injury and deformity, Neuro: Negative for headache, weakness, numbness, tingling, and seizure. 06:22 Abdomen/GI: Positive for abdominal pain, Negative for nausea, vomiting, and diarrhea. Exam: 06:22 Constitutional: This is a well developed, well nourished patient who is awake, alert, jr8 and in no acute distress. Head/Face: Normocephalic, atraumatic. Eyes: Pupils equal round and reactive to light, extra-ocular motions intact. Lids and lashes normal. Conjunctiva and sclera are non-icteric and not injected. Cornea within normal limits. Periorbital areas with no swelling, redness, or edema. ENT: Nares patent. No nasal discharge, no septal abnormalities noted. Tympanic membranes are normal and external auditory canals are clear. Oropharynx with no redness, swelling, or masses, exudates, or evidence of obstruction, uvula midline. Mucous membranes moist. Neck: Trachea midline, no thyromegaly or masses palpated, and no cervical lymphadenopathy. Supple, full range of motion without nuchal rigidity, or vertebral point tenderness. No Meningismus. Chest/axilla: Normal chest wall appearance and motion. Nontender with no deformity. No lesions are appreciated. Cardiovascular: Regular rate and rhythm with a normal S1 and S2. No gallops, murmurs, or rubs. Normal PMI, no JVD. No pulse deficits. Respiratory: Lungs have equal breath sounds bilaterally, clear to auscultation and percussion. No rales, rhonchi or wheezes noted. No increased work of breathing, no retractions or nasal flaring. Back: No spinal tenderness. No costovertebral tenderness. Full range of motion. Skin: Warm, dry with normal turgor. Normal color with no rashes, no lesions, and no evidence of cellulitis. 06:22 Abdomen/GI: Inspection: abdomen appears normal, obese Bowel sounds: normal, in all quadrants, Palpation: soft, in all quadrants, mild abdominal tenderness, in all quadrants, Indicators: McBurney's point is not tender, Jeffery's sign is negative, Rovsing's sign is negative, Obturator sign is negative, Psoas sign is negative. Vital Signs: 06:04 BP 126 / 85; Pulse 122; Resp 18; Temp 100.5; Pulse Ox 97% on R/A; Weight 99.79 kg; ea Height 6 ft. 0 in. (182.88 cm); Pain 8/10; 07:54 BP 126 / 85; Pulse 85; Resp 16; Temp 98.8(TE); Pulse Ox 100% on R/A; Pain 3/10; hb 08:45 BP 131 / 90; Pulse 83; Resp 15; Pulse Ox 100% on R/A; Pain 8/10; hb 06:04 Body Mass Index 29.84 (99.79 kg, 182.88 cm) ea MDM: 06:07 Patient medically screened. [facility] 07:07 Data reviewed: vital signs, nurses notes, old medical records, Reviewed CT from [facility] yesterday lab test result(s). Data interpreted: Pulse oximetry: on room air is 97 %. Interpretation: normal. Counseling: I had a detailed discussion with the patient and/or guardian regarding: the historical points, exam findings, and any diagnostic results supporting the discharge/admit diagnosis, lab results, the need for further work-up and treatment in the hospital. Response to treatment: the patient's symptoms have markedly improved after treatment. ED course: Pt without worsening abd pain and fever after being discharged home yesterday with cipro and flagyl. Pt tolerating PO and took his abd at 0400. Due to the worsening pain and fever pt will be admitted for IV antibiotics. At this time abd is soft without guarding or rigidity, CT scan not warranted at this time. . 07:35 Physician consultation: Nolan Mccain MD was called at 07:35, was contacted at 07:35, [facility] regarding consult, will consult on patient. 07/16 06:09 Order name: Basic Metabolic Panel; Complete Time: 07:03 07/16 06:09 Order name: CBC with Diff; Complete Time: 07:03 07/16 06:09 Order name: Creatinine for Radiology; Complete Time: 07:03 07/16 06:09 Order name: Hepatic Function; Complete Time: 07:03 07/16 06:09 Order name: Lipase; Complete Time: 07:03 07/16 06:09 Order name: Blood Culture Adult (2) 07/16 06:09 Order name: Procalcitonin; Complete Time: 07:07 07/16 06:09 Order name: Lactate; Complete Time: 07:17 07/16 06:09 Order name: IV Saline Lock; Complete Time: 06:34 07/16 06:09 Order name: Labs collected and sent; Complete Time: 06:34 Administered Medications: 06:25 Drug: NS 0.9% (30 ml/kg) 30 ml/kg Route: IV; Rate: bolus; Site: left antecubital; ea 09:36 Follow up: Response: No adverse reaction; IV Status: Completed infusion; IV Intake: hb 3000ml 06:25 Drug: morphine 4 mg Route: IVP; Site: left antecubital; ea 06:54 Follow up: Response: No adverse reaction; RASS: Alert and Calm (0) ea 06:25 Drug: Zofran 4 mg Route: IVP; Site: left antecubital; ea 06:54 Follow up: Response: No adverse reaction ea 06:53 Drug: Zosyn 3.375 grams Route: IVPB; Infused Over: 60 mins; Site: left antecubital; ea 07:55 Follow up: Response: No adverse reaction; IV Status: Completed infusion; IV Intake: hb 100ml 08:51 Drug: morphine 4 mg Route: IVP; Site: left antecubital; hb 09:36 Follow up: Response: No adverse reaction; Pain is decreased; RASS: Alert and Calm (0) hb 08:51 Drug: Zofran 4 mg Route: IVP; Site: left antecubital; hb 09:36 Follow up: Response: No adverse reaction hb Disposition: 11:28 Co-signature as Attending Physician, Gideon Gonzalez MD I agree with the assessment and kdr plan of care. Disposition: 07/16/19 07:12 Hospitalization ordered by Estephanie Bangura for Inpatient Admission. Preliminary diagnosis are Diverticulitis of large intestine without perforation or abscess without bleeding, Fever, unspecified. - Bed requested for Telemetry/MedSurg (Inpatient). - Status is Inpatient Admission. hb - Condition is Stable. - Problem is an ongoing problem. - Symptoms have worsened. UTI on Admission? No Signatures: Dispatcher [employer] EDKarla Le RN RN dw Rittger, Kevin, MD MD kdr Roszak, Josh, PA PA jr8 Court Ham RN RN ak1 Barb Will RN RN Stefanie Fountain RN RN ea Botello, Elizabeth eb Corrections: (The following items were deleted from the chart) 06:26 06:22 Constitutional: Negative for fever, chills, and weight loss, Eyes: Negative for jr8 injury, pain, redness, and discharge, ENT: Negative for injury, pain, and discharge, Neck: Negative for injury, pain, and swelling, Cardiovascular: Negative for chest pain, palpitations, and edema, Respiratory: Negative for shortness of breath, cough, wheezing, and pleuritic chest pain, Back: Negative for injury and pain, MS/Extremity: Negative for injury and deformity, Neuro: Negative for headache, weakness, numbness, tingling, and seizure, jr8 07:23 07:12 Hospitalization Ordered by Estephanie Bangura MD for Inpatient Admission. Preliminary eb diagnosis is Diverticulitis of large intestine without perforation or abscess without bleeding; Fever, unspecified. Bed requested for Telemetry/MedSurg (Inpatient). Status is Inpatient Admission. Condition is Stable. Problem is an ongoing problem. Symptoms have worsened. UTI on Admission? No. jr8 08:58 07:23 07/16/2019 07:12 Hospitalization Ordered by Estephanie Bangura MD for Inpatient dw Admission. Preliminary diagnosis is Diverticulitis of large intestine without perforation or abscess without bleeding; Fever, unspecified. Bed requested for Telemetry/MedSurg (Inpatient). Status is Inpatient Admission. Condition is Stable. Problem is an ongoing problem. Symptoms have worsened. UTI on Admission? No. eb 09:46 08:58 07/16/2019 07:12 Hospitalization Ordered by Estephanie Bangura MD for Inpatient hb Admission. Preliminary diagnosis is Diverticulitis of large intestine without perforation or abscess without bleeding; Fever, unspecified. Bed requested for Telemetry/MedSurg (Inpatient). Status is Inpatient Admission. Condition is Stable. Problem is an ongoing problem. Symptoms have worsened. UTI on Admission? No. dw
[2019-07-16] MEDS ORDERED: NA CHLORIDE 0.9% 1,000 ML IV ONE (08:30)
[2019-07-16] MEDS ORDERED: MORPHINE 2 MG/ML SYR IV PRN (10:02)
[2019-07-16] MEDS ORDERED: ONDANSETRON 4 MG/2 ML VIAL IV PRN (10:02)
[2019-07-16] MEDS ORDERED: ACETAMINOPHEN 500 MG TAB PO PRN (10:02)
[2019-07-16] MEDS ORDERED: POTASSIUM 25 MEQ EFFERV TAB PO ONE (10:03)
[2019-07-16] MEDS ORDERED: PIPER/TAZO/NS 3.375gm 3.375 GM/100 ML BAG IVPB SCH (10:30)
[2019-07-16] MEDS: NA CHLORIDE 0.9% 1,000 ML IV SCH ×3 (10:40→20:21)
[2019-07-16] MEDS: MORPHINE 2 MG/ML SYR IV PRN ×5 (11:40→22:51)
--- NOTE | 2019-07-16 11:42 | RAD REPORT ---
EXAM DESCRIPTION: RAD - Abdomen W Erect - 07/16/2019 11:24 am CLINICAL HISTORY: Abdominal pain FINDINGS: The bowel gas pattern is unremarkable. Free air is not seen beneath the diaphragm
[2019-07-16 12:08] VITALS: BMI 30.2
[2019-07-16 13:21] LABS: Urine Appearance CLEAR; Urine Bilirubin NEGATIVE (NEG); Urine Blood NEGATIVE (NEG); Urine Color YELLOW; Urine Glucose NEGATIVE (NEG); Urine Protein NEGATIVE (NEG); Urine Urobilinogen 0.2 mg/dL (0.2-1.0)
[2019-07-16 13:22] LABS: Urine Microscopic Reflex NO UMIC
[2019-07-16] MEDS: FAMOTIDINE 20 MG/2 ML VIAL IV SCH ×2 (13:57→20:22)
[2019-07-16] MEDS: PIPER/TAZO/NS 3.375gm 3.375 GM/100 ML BAG IVPB SCH (14:32)
[2019-07-16] MEDS ORDERED: LORazepam 2 MG/ML VIAL IV PRN (14:40)
--- NOTE | 2019-07-16 15:35 | CON ---
Date of Consultation: 07/16/2019 Diagnoses: Acute diverticulitis. History Of Present Illness: This is the case of a 48-year-old patient, came yesterday to the ER, com plaining of left lower quadrant tenderness, diagnosed with diverticulitis and sent home with Levaquin and Flagyl, but then the patient was eating normal. He noticed overnight he got worse. Apparently, he came back to the ER this morning, diagnosed with acute diverticulitis and a surgical consult was obtained. Patient denies any trauma. No dysuria, hematuria, hematochezia or melena and he denies an y recent traveling out of the country. Denies any family members sick at home. Allergies: ETODOLAC. Medical Problems: None. Family History: Unremarkable. Social History: He does not smoke. He does not drink alcohol. Review of Systems: 10 point is otherwise unremarkable. Physical Examination: General: Patient is awake and alert. HEENT: Pupils are equal and reactive, anicteric. Neck: Supple. Chest: Clear. Abdomen: Left lower quadrant tenderness with guarding. No rebound. Rectal: Deferred. Extremities: Good capillary refill. Laboratory Data: Blood work shows WBC count of 11.0. Hemoglobin is 11.9. Potassium is 3.4. Creati nine is 1.07. CAT scan of abdomen and pelvis, it was done yesterday, no x-rays has been done today. It shows acute diverticulitis. Assessment: This is a 48-year-old patient, acute diverticulitis, failed outpatient treatment, came t [place] with worsening of the pain. Patient currently on IV antibiotics. I will ask the patient to be n.p.o. and at this moment we going to get an x-ray supine or in upright looking for any free air. We are going to repeat the x-ray once again tomorrow. We explained to the patient, if it clinically ge ts worse, we might have to do for emergent laparotomy, possible bowel resection, possible ostomy with benefits, alternatives, and risks including, but not limited to infection, bleeding, damage to adjac ent structures as complication, VT and even . He also understands this may not relieve his symp toms. He might need more than one surgical intervention. He understands the importance of following doctors' orders. YESI Voice ID: [id number] Report ID: [id number]
[2019-07-16] MEDS ORDERED: KCL 20 MEQ/100 mL IVPB 20 MEQ/100 ML BAG IV SCH (18:00)
[2019-07-16] MEDS ORDERED: INFLUENZA VACCINE (for 3y+) 0.5 ML DOSE IMVAC ONE (19:00)
--- NOTE | 2019-07-17 00:35 | HP ---
Date of Admission: 07/16/2019 Primary Care Physician: Elizabeth Reeder DO Consultants: Nolan Mccain MD with General Surgery. Chief Complaint: Abdominal pain. History Of Present Illness: The patient is a 48-year-old male with past medical history of hyperlipidemia, gastroesophageal reflux disease, and generalized anxiety disorder, who was in his usual state of health until several days prior to admission when the patient had sudden onset of fever, chills. Patient had abdominal pain in his lower quadrant, came into the ER for further evaluation. Patient had some nausea, no vomiting. Pain was constant, moderate, progressively worsening. No ill contacts. No unusual foods or travel outside the country. Patient came into the ER yesterday. He was evaluated, had a CT scan of the abdomen and pelvis done, which showed acute sigmoid diverticulitis. No abscess, free air, or surgically emergent finding. Patient was then discharged home on Cipro and Flagyl. Patient took 3 doses and had worsening symptoms, therefore came back to the ER for further evaluation. Patient was febrile. He was tachycardic, had an elevated lactate of 3. White blood cell count was 11. Patient was found to be septic, therefore was given IV fluid, sepsis bolus, 30 mL/kg. Cultures were obtained. Patient was referred for admission. When seen in the ER, he was awake, alert, oriented x3, in moderate distress due to pain. Past Medical History: Hyperlipidemia, generalized anxiety disorder, recently had a stress fracture of his right foot. Past Surgical History: None. Allergies: TO ETODOLAC. Social History: Patient denies any tobacco use. Does drink alcohol occasionally. No illicit drug use. Patient , lives at home, independent in his activities of daily living, is currently employed. Family History: Hypertension runs in the family. Review of Systems: Ten-point system reviewed, negative except as per HPI. Physical Examination: Vital Signs: Blood pressure 126/85, pulse 122, respirations 18, temperature 100.5, O2 97% on room air. General: Awake, alert, oriented x3, ill-appearing obese male in moderate distress due to pain. HEENT: Normocephalic, atraumatic. PERRLA, EOMI. Dry mucous membranes. Oropharynx is clear. Normal dentition. Conjunctivae are anicteric. Neck: Supple. No JVD. Trachea midline. CVS: S1, S2. Sinus tachycardia. Peripheral pulses present. Respiratory: Moving air well bilaterally. No wheezing or stridor. No use of accessory muscles. Gastrointestinal: Abdomen is soft. Tenderness to palpation in the left lower quadrant. Warm to touch. No peritoneal signs. However, there is some rebound tenderness. Some voluntary guarding present. Extremities: No clubbing, cyanosis, or edema. No calf tenderness. Neuro: Cranial nerves 2 through 12 intact grossly. No focal neurological deficit. Speech is normal. Skin: No rashes. Patient has erythema of the left lower quadrant of the abdomen. Psych: Mood is okay. Affect is full. Insight and judgment are good. Laboratory Data: WBC 11, H and H 11.9 and 35.2, platelets 198, neutrophils 83% . Sodium 138, potassium 3.4, chloride 105, CO2 25, BUN 6, creatinine 1.07, glucose 157, lactate 3, calcium 8.7, AST 13, ALT 14, albumin 3.5, lipase 69. Procalcitonin less than 0.05. Abdominal x-ray from 07/16/2019 shows unremarkable bowel gas pattern. Free air not seen beneath the diaphragm. CT scan of the abdomen and pelvis shows acute sigmoid diverticulitis. No abscess, free air, or surgically emergent finding. Assessment: A 48-year-old male with: 1. Sepsis. Patient is tachycardic, fever, elevated white blood cell count. Source of infection is abdominal. Patient has received 30 mL/kg bolus. Lactate is elevated at 3. Procalcitonin is negative. We will repeat lactate in 2 hours. Cultures have been obtained. 2. Acute sigmoid diverticulitis with failed outpatient treatment. We will continue with IV antibiotics with Zosyn. Surgery has been consulted. There is risk for perforation. Patient had a full meal yesterday. We will keep n.p.o., morphine for pain. We will follow up on blood cultures. 3. Hypokalemia. We will replace and monitor. 4. Mixed hyperlipidemia, stable. 5. Generalized anxiety disorder, stable. 6. Gastroesophageal reflux disease. We will continue with IV Pepcid for stress ulcer prophylaxis. Plan: Admit patient to Med-Surg, place as inpatient. Length of stay greater than 2 midnights. DAVID Voice ID: [id number] [facility]
[2019-07-17] MEDS: PIPER/TAZO/NS 3.375gm 3.375 GM/100 ML BAG IVPB SCH ×3 (00:37→16:02)
[2019-07-17] MEDS: MORPHINE 2 MG/ML SYR IV PRN ×5 (02:36→13:30)
[2019-07-17] MEDS: NA CHLORIDE 0.9% 1,000 ML IV SCH ×4 (02:37→18:02)
[2019-07-17 05:44] LABS: Absolute Lymphocytes (CBC) 1.2 K/uL (0.7-4.9); Basophils % 0.4 % (0-1.3); Hematocrit 31.9 % (39.6-49.0); Lymphocytes % 11.8 % (15.3-44.8); MPV 8.6 fL (7.6-11.3); RBC Red Blood Cell Count 3.49 M/uL (4.33-5.43)
[2019-07-17 05:57] LABS: ALT/SGPT 11 U/L (12-78); AST/SGOT 14 U/L (15-37); Albumin 3.1 g/dL (3.4-5.0); Alkaline Phosphatase 85 U/L (45-117); BUN Blood Urea Nitrogen 5 mg/dL (7-18); Bicarbonate 24 mmol/L (21-32); Glucose Level 80 mg/dL (74-106); Magnesium 2.2 mg/dL (1.8-2.4); Phosphorus 2.9 mg/dL (2.5-4.9); Potassium 3.9 mmol/L (3.5-5.1); Protein, Total 6.6 g/dL (6.4-8.2); Sodium Level 139 mmol/L (136-145)
[2019-07-17] MEDS ORDERED: KCL 20 MEQ/100 mL IVPB 20 MEQ/100 ML BAG IV SCH (08:00)
[2019-07-17] MEDS: FAMOTIDINE 20 MG/2 ML VIAL IV SCH ×2 (08:40→20:27)
--- NOTE | 2019-07-17 08:42 | RAD REPORT ---
EXAM DESCRIPTION: RAD - Abdomen W Erect - 07/17/2019 8:19 am CLINICAL HISTORY: diverticulitis COMPARISON: Abdomen W Erect dated 07/16/2019; Abdomen Pelvis W Contrast dated 07/15/2019 TECHNIQUE: Supine and upright views of the abdomen were obtained. FINDINGS: No bowel obstruction, free air or pneumatosis. Moderate stool volume is present in the rig ht-side of the colon. Numerous phleboliths are present in the pelvis. No suspicious calcification. No acute bone finding. IMPRESSION: Abdomen two-view examination shows no acute finding. No significant change from the prio r day study.
--- NOTE | 2019-07-17 11:48 | PN ---
Subjective: Patient seen and examined. Chart reviewed and case discussed with RN. Patient continues to have low-grade fevers. Pain is better with ice packs , however, still quite significant. No further nausea or vomiting. Medications: List reviewed. Physical Examination: Vital Signs: Temperature 100.2, heart rate 107, blood pressure 120/80, respirations 18, O2 at 97% on room air. General: Awake, alert oriented x3, ill-appearing obese male. CV: S1, S2. Sinus tachycardia. Peripheral pulses present. Respiratory: Moving air well bilaterally. No wheezing or stridor. No use of accessory muscles. Gastrointestinal: Abdomen is soft. Tenderness to palpation in the left lower quadrant. No rebound. Patient has some voluntary guarding. No signs of peritonitis. Extremities: No clubbing, cyanosis, or edema. Neurologic: Nonfocal. Laboratory Data: Sodium 139, potassium 3.9, chloride 107, CO2 of 24, BUN 5, creatinine 0.77, glucose 80, calcium 8.5, phosphorus 2.9, magnesium 2.2, AST 14 , ALT 11. WBC 10.2, H and H 11 and 31.9, platelets 181, neutrophils 79%. Abdominal x-ray personally reviewed shows no acute findings. No significant change from the prior day study. Assessment: A 48-year-old male with; 1. Sepsis. The patient is still tachycardic. White blood cell count is trending down. The patient is having low-grade fevers. Continue with IV fluids. Follow up on culture results. 2. Acute sigmoid diverticulitis with failed outpatient treatment. We will continue Zosyn. Appreciate Dr. Mccain's input. Serial abdominal x-rays have been negative for any free air. The patient still having significant amount of pain. White blood cell count improved. Continue n.p.o. status. Pain control with morphine. Follow up on cultures. 3. Hypokalemia, replaced. 4. Mixed hyperlipidemia, stable. 5. Generalized anxiety disorder, stable. 6. Gastroesophageal reflux disease. We will continue with IV Pepcid. Disposition: Likely discharge in the next 48 to 72 hours depending on clinical response. /JOHN Voice ID: [id number] Report ID: [id number] [facility] HOSPITALYonatan
[2019-07-17] MEDS: MORPHINE 4 MG/ML SYR IV PRN ×3 (15:36→23:11)
--- NOTE | 2019-07-17 17:14 | P.PN ---
Subjective Date of Service: 07/17/19 Chief Complaint: acute diverticulititis Subjective: Improving Review of Systems ENT: Unremarkable Respiratory: Unremarkable Cardiovascular: Unremarkable Gastrointestinal: Nausea, Abdominal Pain, Distention, As per HPI Genitourinary: Frequency Musculoskeletal: Unremarkable Physical Examination - Vital Signs Temperature: 99.1 F Blood Pressure: 138/78 Pulse: 90 Respirations: 19 Pulse Ox (%): 97 - Physical Exam General: Alert, Cooperative HEENT: PERRLA, EOMI Neck: Supple Respiratory: Normal air movement Gastrointestinal: No rebound, Distended, Tenderness (LLQ), Guarding Musculoskeletal: No tenderness Integumentary: No rashes, No breakdown - Studies Imagings Data: x ray reviewed with pt Assessment And Plan - Plan full liquid diet in am if continue improvement oob cont abx
[2019-07-18] MEDS: NA CHLORIDE 0.9% 1,000 ML IV SCH ×3 (00:38→17:48)
[2019-07-18] MEDS: PIPER/TAZO/NS 3.375gm 3.375 GM/100 ML BAG IVPB SCH ×3 (00:39→17:49)
[2019-07-18] MEDS: MORPHINE 2 MG/ML SYR IV PRN ×4 (04:00→14:01)
[2019-07-18 05:57] LABS: ALT/SGPT 11 U/L (12-78); AST/SGOT 15 U/L (15-37); Albumin 3.1 g/dL (3.4-5.0); Alkaline Phosphatase 82 U/L (45-117); BUN Blood Urea Nitrogen 8 mg/dL (7-18); Bicarbonate 25 mmol/L (21-32); Bilirubin Total 0.6 mg/dL (0.2-1.0); Glucose Level 74 mg/dL (74-106); Protein, Total 6.6 g/dL (6.4-8.2); Sodium Level 139 mmol/L (136-145)
[2019-07-18 05:58] LABS: Basophils % 0.5 % (0-1.3); Hematocrit 31.1 % (39.6-49.0); MPV 8.4 fL (7.6-11.3); RBC Red Blood Cell Count 3.42 M/uL (4.33-5.43)
[2019-07-18] MEDS: FAMOTIDINE 20 MG/2 ML VIAL IV SCH (09:18)
--- NOTE | 2019-07-18 10:55 | PN ---
Date of Progress Note: 07/18/2019 Subjective: Patient seen and examined. Chart reviewed and case discussed with RN and Dr. Mccain. Pain seems to be better. Patient went down for x-ray yesterday, did not get his medication dosed, however, did receive and afterwards stated that his pain got out of control at that time. Medications: List reviewed. Physical Examination: Vital Signs: Temperature 98.6, heart rate 99, blood pressure 159/77, respirations 18, O2 at 96% on room air. General: Awake, alert, oriented x3, in some mild distress. CV: S1, S2. Regular rate and rhythm. Peripheral pulses present. Respiratory: Moving air well bilaterally. No wheezing or stridor. No use of accessory muscles. Gastrointestinal: Abdomen is soft. Tenderness to palpation in the left lower quadrant. No rebound or guarding. Warm to touch. Minimal erythema. Bowel sounds positive. Extremities: No clubbing, cyanosis, edema. Musculoskeletal: Patient has foot wrapped in Keny bandage right foot due to previous fracture. Laboratory Data: Sodium 139, potassium 4, chloride 106, CO2 25, BUN 8, creatinine 0.74, glucose 74, calcium 8.7. WBC 6.8, H and H 11 and 31.1, platelets 192, neutrophils 76%. Assessment: 48-year-old male with: 1. Sepsis, improving. Patient still somewhat tachycardic, having low-grade temperatures. White blood cell count improved. Blood cultures negative. 2. Acute sigmoid diverticulitis with failed outpatient treatment. Continue Zosyn. Cultures negative. Abdominal x-rays did not show any free air. We will start on clear liquid diet. Appreciate Dr. Mccain's input. 3. Hypokalemia, replaced. We will continue to monitor. 4. Mixed hyperlipidemia, stable. 5. Normocytic, normochromic anemia likely anemia of chronic disease. Monitor H and H. 6. Generalized anxiety disorder, stable. 7. Gastroesophageal reflux disease. Continue with Pepcid. We will switch to p.o., as the patient will be on clear liquids today. Plan: Likely discharge in the next 24 hours depending on clinical response and if able to tolerate a soft diet. We will follow up with surgery. ADDENDUM: 6:00 p.m. contacted by patient's who states that have patient doubled over from pain after eating full liquids however no vomiting patient did have some nausea. Case discussed Dr. Mccain will repeat CT abdomen in [email or web address] ZABALA/JOHN Voice ID: [id number] Report ID: [id number] [facility]TD[facility]
[2019-07-18] MEDS ORDERED: ALPRAZOLAM 1 MG TABLET PO PRN (14:52)
[2019-07-18] MEDS: MORPHINE 4 MG/ML SYR IV PRN ×3 (15:54→21:50)
[2019-07-18] MEDS ORDERED: ATORVASTATIN 10 MG TAB PO SCH (21:00)
[2019-07-18] MEDS ORDERED: ZOLPIDEM TARTRATE 10 MG TABLET PO SCH (21:00)
[2019-07-19] MEDS: PIPER/TAZO/NS 3.375gm 3.375 GM/100 ML BAG IVPB SCH ×3 (01:13→15:56)
[2019-07-19] MEDS: NA CHLORIDE 0.9% 1,000 ML IV SCH ×3 (01:45→22:24)
[2019-07-19] MEDS: MORPHINE 4 MG/ML SYR IV PRN ×7 (04:15→22:28)
[2019-07-19] MEDS ORDERED: PANTOPRAZOLE 40MG TABLET PO SCH (07:30)
--- NOTE | 2019-07-19 10:59 | RAD REPORT ---
EXAM DESCRIPTION: CT - Abdomen Pelvis Wo Contrast - 07/19/2019 10:36 am CLINICAL HISTORY: Abdominal pain COMPARISON: July 15, 2019 TECHNIQUE: Computed axial tomography of the abdomen and pelvis was obtained. IV and oral contrast we re not requested. All CT scans are performed using dose optimization technique as appropriate and may include automated exposure control or mA/KV adjustment according to patient size. FINDINGS: The evaluation of solid organs, vessels and bowel is limited secondary to the lack of con trast administration. The liver, spleen, pancreas, adrenals and kidneys appear grossly normal. The appendix is normal. Small inguinal hernias contain fat Colonic diverticulosis again demonstrated. Moderate to marked stranding adjacent to the sigmoid colon . A couple of extraluminal air bubbles have developed within the mesocolon. No abscess. Small phlegmo nous area within the sigmoid mesocolon IMPRESSION: Moderate to marked diverticulitis has worsened since the prior exam. Micro perforation h as developed with a couple of extraluminal air bubbles within the adjacent sigmoid mesocolon
--- NOTE | 2019-07-19 11:01 | PN ---
Date of Progress Note: 07/19/2019 Diagnosis: Acute diverticulitis. Subjective: The patient is doing better. Last night he was having some discomfort, today he feels b abena, tolerating the diet. Review of Systems: Chest: No short of breath. Abdomen: Soft and depressible. Less pain on left side. No diarrhea and no vomiting. Extremity: No pain General: Patient and awake alert. No distress. Eyes: Pupils anicteric. Chest: Clear. Abdomen: Left lower quadrant tenderness, less than before and warm, feeling on the left lower quadra nt is also less. Extremities: Full range of motion. The blood work shows a normal WBC count. Plan: Patient is pending a repeat CT scan today, based on that we going to advance diet and also det ermine his safest discharge whenever he is tolerating diet, and can take his medications by mouth. BERNARD/JOHN Voice ID: [id number] Report ID: [id number]
[2019-07-19 11:53] LABS: Absolute Lymphocytes (CBC) 1.1 K/uL (0.7-4.9); Basophils % 0.6 % (0-1.3); Hematocrit 33.9 % (39.6-49.0); Lymphocytes % 19.2 % (15.3-44.8); MPV 8.1 fL (7.6-11.3); RBC Red Blood Cell Count 3.74 M/uL (4.33-5.43)
--- NOTE | 2019-07-19 11:59 | RAD REPORT ---
EXAM DESCRIPTION: US - UPPER EXTREMITY VENOUS UNILATE - 07/19/2019 11:14 am CLINICAL HISTORY: Left arm pain and swelling COMPARISON: None. TECHNIQUE: Real-time sonographic evaluation of the left upper extremity deep venous systems was perf ormed. FINDINGS: Normal compressibility, flow augmentation, phasic flow and spontaneous flow are identified in the left upper extremity deep venous system. Internal jugular and subclavian veins are normal as well. The superficial basilic vein is normal. Thrombus is present in the left superficial cephalic vein wit h incomplete compression. This is seen in the distal aspect of the upper extremity extending distally into the forearm. No mass or abnormal fluid collection in the soft tissues. IMPRESSION: Superficial venous thrombosis involving the cephalic vein. No deep venous thrombosis.
[2019-07-19 12:07] LABS: BUN Blood Urea Nitrogen 3 mg/dL (7-18); Bicarbonate 26 mmol/L (21-32); Glucose Level 83 mg/dL (74-106); Magnesium 2.3 mg/dL (1.8-2.4); Phosphorus 3.2 mg/dL (2.5-4.9); Potassium 3.7 mmol/L (3.5-5.1); Sodium Level 140 mmol/L (136-145)
[2019-07-19 12:28] VITALS: O2SAT 99
--- NOTE | 2019-07-19 17:23 | PN ---
Date of Progress Note: 07/19/2019 Subjective: Patient seen and examined. Chart reviewed and case discussed with RN and Dr. Mccain. Patient had some abdominal pain when he tried full liquids. Seems to be having minimal amount of pa in, however, requiring pain medications round the clock. Also, complains of foot pain and swelling i n his right upper arm where the IV was. Medications: List reviewed. Physical Examination: Vital Signs: Temperature 98.9, heart rate 92, blood pressure 159/85, respirations 18, O2 99% on room air. General: Awake, alert, oriented x3, obese male in some mild distress, ill-appearing. CV: S1, S2. Regular rate and rhythm. Peripheral pulses present. Respiratory: Moving air well bilaterally. No wheezing or stridor. No use of accessory muscles. Gastrointestinal: Abdomen is soft. No distention. Patient has tenderness in the left lower quadran t, some warmth to touch. No rebound or guarding. Extremities: No clubbing, cyanosis. Patient does have edema on the left upper extremity. Warm to t ouch. Musculoskeletal: Right foot tenderness to palpation, Keny wrapped due to history of fracture in a fra cture boot. Neurologic: Nonfocal. Laboratory Data: Sodium 140, potassium 3.7, chloride 105, CO2 of 26, BUN 3, creatinine 0.71, glucose 83, calcium 9, phosphorus 3.2, magnesium 2.3. Lactate 1.4. WBC 5.9, H and H 11.8 and 33.9, platele ts 238, neutrophils 69%. Blood cultures, no growth to date. Repeat CT scan of the abdomen and pelvi s shows moderate to marked diverticulitis has worsened since prior exam. Microperforation has develo ped within a couple of extraluminal air bubbles within the adjacent sigmoid mesocolon. Ultrasound of the upper extremity shows superficial venous thrombosis involving the cephalic vein. No DVT. Assessment: A 48-year-old male with; 1.Sepsis improving. Cultures are negative. WBCs are normal. Continue with IV antibiotics. 2.Acute sigmoid diverticulitis, now with perforation with failed outpatient treatment. We will cont inue on Zosyn. Appreciate Dr. Mccain's input. He recommends transfer to higher level of care for colorectal specialist at [facility]. Dr. Solano has been contacted. Awaiting call back. Transfer ramses ter also contacted. 3.Hypokalemia, replaced. 4.Mixed hyperlipidemia, stable. 5.Right foot fracture, subacute. Patient is on fracture boot. 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 6.Normocytic normochromic anemia, likely due to anemia of chronic disease. 7.Generalized anxiety disorder. Stable. 8.Elevated blood pressure without diagnosis of hypertension, likely due to pain medications. We lionel l continue to monitor. Use IV p.r.n. medications. 9.Gastroesophageal reflux disease. Continue with IV Pepcid. He was switched to p.o. yesterday as h e was able to tolerate clear liquids. Plan: Transfer to higher level of care for colorectal surgery. Patient will likely need surgery and long-term IV antibiotics. /JOHN Voice ID: [id number] Report ID: [id number]
[2019-07-19] MEDS ORDERED: FAMOTIDINE 20 MG/2 ML VIAL IV SCH (21:00)
[2019-07-20 00:02] VITALS: BP 159/80; TEMP 98.6
== END 2019-07-20 00:12 | disposition short-term general hospital (02) | DRG 872 ==
LOC: ER 05:45 → ERHOLD 08:20 → 2ND 09:34
PROVIDERS: ADMIT Family Medicine; ATTEND Family Medicine
DX: A41.9 Sepsis, unspecified organism (principal); K57.20 Diverticulitis of large intestine with perforation and abscess without bleeding; E87.6 Hypokalemia; E78.2 Mixed hyperlipidemia; S92.901A Unspecified fracture of right foot, initial encounter for closed fracture; D64.9 Anemia, unspecified; F41.8 Other specified anxiety disorders; R03.0 Elevated blood-pressure reading, without diagnosis of hypertension; K21.9 Gastro-esophageal reflux disease without esophagitis; E66.9 Obesity, unspecified; Z68.30 Body mass index [BMI] 30.0-30.9, adult
CPT/HCPCS: 36415; 74019; 74176; 80048; 80053; 80076; 81003; 83605; 83690; 83735; 84100; 84132; 84145; 85025; 87040; 93971; 94760; 96365; 96366; 96375; 99285; J2270; J2405; J2543; J7030

== ENCOUNTER 2022-02-01 08:40 | Emergency (ER) | payer BC ==
[2022-02-01] MEDS ORDERED: HYDROCODONE/APAP 10/325 TAB ONE (09:16)
[2022-02-01] MEDS ORDERED: CYCLOBENZAPRINE 10 MG TAB ONE (09:16)
[2022-02-01] MEDS ORDERED: dexAMETHasone 10 MG/ML VIAL ONE (09:17)
[2022-02-01] MEDS ORDERED: LIDOCAINE 4% PATCH ONE (09:17)
--- NOTE | 2022-02-01 10:09 | RAD REPORT ---
EXAM DESCRIPTION: RAD - Lumbar Spine 3 Views - 02/01/2022 9:37 am CLINICAL HISTORY: Radiculopathy COMPARISON: LUMBAR SPINE 3 VIEWS dated 02/18/2013; Abdomen Pelvis Wo Contrast dated 07/19/2019 FINDINGS: Compression deformities are present at L1, L2, and L3 which were present on the prior CT from 07/19/2019. No acute fracture. Minimal endplate spurring. Mild disc height loss at L5-S1 IMPRESSION: No acute osseous abnormality involving the lumbar spine. Mild degenerative disc disease. Etiology of a radiculopathy can be better assessed with MRI.
--- NOTE | 2022-02-01 10:35 | EDPHYS ---
Physician Documentation [facility] Name: Sandro Ramirez Age: 51 yrs Sex: Male : 1970 Arrival Date: 02/01/2022 Time: 08:42 Bed 4 Private MD: ED Physician Zainab Kendall HPI: 02/01 09:07 This 51 yrs old Male presents to ER via Ambulatory with complaints of Back Pain. pm1 09:07 The patient presents with pain that is acute. The symptoms are located in the right low pm1 back. Onset: The symptoms/episode began/occurred yesterday. The pain radiates to the right leg. Associated signs and symptoms: Pertinent negatives: dysuria, fever, incontinence, weakness, inability to walk. 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 Modifying factors: The patient symptoms are alleviated by remaining still, the patient symptoms are aggravated by movement. Severity of symptoms: in the emergency department the symptoms are unchanged. 10 years ago patient reports history of herniated disc that will give him back pain flare ups once per year that are mild. The patient has not recently seen a physician. Historical: - Allergies: 09:04 Etodolac; jd3 - Home Meds: 09:04 Simvastatin Oral [Active]; Omeprazole Oral [Active]; Lisinopril Oral [Active]; jd3 gabapentin oral [Active]; methocarbamol Oral [Active]; Tramadol Oral [Active]; - PMHx: 09:04 Anxiety; GERD; High Cholesterol; Hypertensive disorder; jd3 - Immunization history:: Adult Immunizations up to date, Client reports receiving the 2nd dose of the Covid vaccine, Flu vaccine is up to date. - Social history:: Smoking status: Patient/guardian denies using tobacco, the patient reports quitting approximately 13 years ago. ROS: 09:07 Constitutional: Negative for fever, chills, and weight loss, Cardiovascular: Negative pm1 for chest pain, palpitations, and edema, Respiratory: Negative for shortness of breath, cough, wheezing, and pleuritic chest pain. 09:07 : Negative for injury, bleeding, discharge, and swelling, MS/Extremity: Negative for injury and deformity, Skin: Negative for injury, rash, and discoloration. 09:07 Back: Positive for of the right low back. 09:07 Neuro: Positive for numbness, of the right leg, Negative for weakness. 09:07 All other systems are negative. Exam: 09:07 Constitutional: This is a well developed, well nourished patient who is awake, alert, pm1 and in no acute distress. Head/Face: Normocephalic, atraumatic. 09:07 Skin: Warm, dry with normal turgor. Normal color with no rashes, no lesions, and no evidence of cellulitis. MS/ Extremity: Pulses equal, no cyanosis. Neurovascular intact. Full, normal range of motion. 09:07 Cardiovascular: Exam negative for acute changes, Rate: normal, Rhythm: regular, Pulses: no pulse deficits are appreciated. 09:07 Respiratory: Exam negative for acute changes, the patient does not display signs of respiratory distress. 09:07 Back: vertebral tenderness, is not appreciated, muscle spasm, is appreciated in the right low back, palpation along right lower back and into gluteus reproduces pain and numbness radiation to right toe. 09:07 Neuro: Exam negative for acute changes, Orientation: is normal, Mentation: is normal, Motor: strength is 5/5 in all extremities, plantar and dorsiflexion of great toes 5/5 strength bilaterally. Vital Signs: 09:06 BP 140 / 97; Pulse 84; Resp 16 S; Temp 98.6(TE); Pulse Ox 100% on R/A; Weight 102.06 kg jd3 (R); Height 6 ft. 1 in. (185.42 cm) (R); Pain 10/10; 09:57 BP 153 / 96; Pulse 85; Resp 16 S; Pulse Ox 100% on R/A; jd3 09:06 Body Mass Index 29.68 (102.06 kg, 185.42 cm) jd3 MDM: 08:55 Patient medically screened. pm1 10:32 Data reviewed: vital signs. Data interpreted: Pulse oximetry: on room air is 100 %. pm1 Interpretation: normal. Counseling: I had a detailed discussion with the patient and/or guardian regarding: the historical points, exam findings, and any diagnostic results supporting the discharge/admit diagnosis, radiology results, the need for outpatient follow up, a family practitioner, a neurosurgeon, Patient with appointment with Dr Lambert on Friday. Recommended patient to have MRI for further evaluation and treatment. Recommended weight belt for future work and possible rehab based on findings to strengthen his core. 10:38 ED course: Patient denies allergies to NSAIDs. He takes ibuprofen for his pain. We will pm1 discharge patient home with Lidoderm patches and narcotic and the muscle relaxants. Patient can take antiinflammatory of choice at home. 02/01 09:07 Order name: Lumbar Spine (3 Views) XRAY; Complete Time: 10:21 pm1 Administered Medications: 09:18 Drug: Lidoderm Patch 5 % (700 mg/patch) 1 patches Route: Topical; Site: affected area; jd3 10:10 Follow up: Response: No adverse reaction jd3 09:18 Drug: Flexeril (cyclobenzaprine) 10 mg Route: PO; jd3 10:10 Follow up: Response: No adverse reaction jd3 09:18 Drug: Decadron (dexamethasone) 10 mg Route: IM; Site: right deltoid; jd3 10:10 Follow up: Response: No adverse reaction jd3 09:18 Drug: Hercules (HYDROcodone-acetaminophen) 10 mg-325 mg 1 tabs Route: PO; jd3 10:10 Follow up: Response: No adverse reaction; RASS: Alert and Calm (0) jd3 10:44 Drug: Ketorolac 60 mg Route: IM; Site: left deltoid; jd3 10:59 Follow up: Response: No adverse reaction jd3 Disposition Summary: 02/01/22 10:34 Discharge Ordered Location: Home pm1 Problem: new pm1 Symptoms: have improved pm1 Condition: Stable pm1 Diagnosis - Lumbago with sciatica, right side pm1 Followup: pm1 - With: Emergency Department - When: As needed - Reason: Worsening of condition Followup: pm1 - With: Yuniel Callejas MD - When: 2 - 3 days - Reason: Recheck today's complaints, Continuance of care, Re-evaluation by your physician Discharge Instructions: - Discharge Summary Sheet pm1 - Acute Back Pain, Adult pm1 - Sciatica pm1 Forms: - Medication Reconciliation Form pm1 - Thank You Letter pm1 - Antibiotic Education pm1 - Prescription Opioid Use pm1 - Work release form pm1 Prescriptions: - Lidoderm 5 % Topical adhesive patch,medicated - apply 1 patch by TRANSDERMAL route once daily As needed 12 hours on and 12 pm1 hours off in a 24 hour period; 10 patch; Refills: 0, Product Selection Permitted - Cyclobenzaprine 10 mg Oral Tablet - take 1 tablet by ORAL route every 8 hours As needed; 30 tablet; Refills: 0, pm1 Product Selection Permitted - Tylenol-Codeine #3 300 mg-30 mg Oral - take 2 tablet by ORAL route every 6 hours As needed; 20 tablet; Refills: 0, pm1 Product Selection Permitted Signatures: Dispatcher [employer] Jose A Woodruff NP DOPE DRY HOUSE OPERATOR pm1 Rex Balderas RN RN jd3
--- NOTE | 2022-02-01 10:35 | ER ---
Nurse's Notes [facility] Name: Sandro Ramirez Age: 51 yrs Sex: Male : 1970 Arrival Date: 02/01/2022 Time: 08:42 Bed 4 Private MD: Diagnosis: Lumbago with sciatica, right side Presentation: 02/01 09:03 Chief complaint: Patient states: "I think I am having this sciatic pain. I have never jd3 had it before, but I am having all the symptoms of it today. my pain starts in my right lower back and travels down my right leg and my right foot feels numb as a result.". Coronavirus screen: At this time, the client does not indicate any symptoms associated with coronavirus-19. Ebola Screen: No symptoms or risks identified at this time. Initial Sepsis Screen: Does the patient meet any 2 criteria? No. Patient's initial sepsis screen is negative. Does the patient have a suspected source of infection? No. Patient's initial sepsis screen is negative. Risk Assessment: Do you want to hurt yourself or someone else? Patient reports no desire to harm self or others. Onset of symptoms was January 27, 2022. 09:03 Method Of Arrival: Ambulatory jd3 09:03 Acuity: JUAN CARLOS 3 jd3 Historical: - Allergies: 09:04 Etodolac; jd3 - Home Meds: 09:04 Simvastatin Oral [Active]; Omeprazole Oral [Active]; Lisinopril Oral [Active]; jd3 gabapentin oral [Active]; methocarbamol Oral [Active]; Tramadol Oral [Active]; - PMHx: 09:04 Anxiety; GERD; High Cholesterol; Hypertensive disorder; jd3 - Immunization history:: Adult Immunizations up to date, Client reports receiving the 2nd dose of the Covid vaccine, Flu vaccine is up to date. - Social history:: Smoking status: Patient/guardian denies using tobacco, the patient reports quitting approximately 13 years ago. Screenin:09 Abuse screen: Denies threats or abuse. Nutritional screening: No deficits noted. jd3 Tuberculosis screening: No symptoms or risk factors identified. Fall Risk Ambulatory Aid- None/Bed Rest/Nurse Assist (0 pts). Gait- Normal/Bed Rest/Wheelchair (0 pts) Mental Status- Oriented to own ability (0 pts). Total Lyles Fall Scale indicates No Risk (0-24 pts). Assessment: 09:07 General: Appears in no apparent distress. comfortable, Behavior is calm, cooperative, jd3 appropriate for age. Pain: Complains of pain in low back area and right low back Pain radiates to right leg Quality of pain is described as sharp, shooting. Neuro: Rojas Agitation-Sedation Scale (RASS): 0 - Alert and Calm Level of Consciousness is awake, alert, obeys commands, Oriented to person, place, time, situation. Cardiovascular: Denies Capillary refill < 3 seconds Patient's skin is warm and dry. Respiratory: Airway is patent Respiratory effort is even, unlabored, Respiratory pattern is regular, symmetrical, Denies cough, shortness of breath. GI: No signs and/or symptoms were reported involving the gastrointestinal system. : No signs and/or symptoms were reported regarding the genitourinary system. EENT: No signs and/or symptoms were reported regarding the EENT system. Derm: Skin is intact, Skin is dry, Skin is normal, Skin temperature is warm. Musculoskeletal: Circulation, motion, and sensation intact. Range of motion: intact in all extremities. 09:57 Reassessment: Patient appears in no apparent distress at this time. No changes from jd3 previously documented assessment. Patient and/or family updated on plan of care and expected duration. Pain level reassessed. Patient is alert, oriented x 3, equal unlabored respirations, skin warm/dry/pink. Vital Signs: 09:06 BP 140 / 97; Pulse 84; Resp 16 S; Temp 98.6(TE); Pulse Ox 100% on R/A; Weight 102.06 kg jd3 (R); Height 6 ft. 1 in. (185.42 cm) (R); Pain 10/10; 09:57 BP 153 / 96; Pulse 85; Resp 16 S; Pulse Ox 100% on R/A; jd3 09:06 Body Mass Index 29.68 (102.06 kg, 185.42 cm) jd3 ED Course: 08:42 Patient arrived in ED. rg4 08:54 Jose A Vega NP is PHCP. pm1 08:54 Zainab Kendall MD is Attending Physician. pm1 08:56 Rex Balderas RN is Primary Nurse. jd3 09:04 Triage completed. jd3 09:07 Arm band placed on. jd3 09:09 Patient has correct armband on for positive identification. Bed in low position. Call jd3 light in reach. Side rails up X 1. Adult w/ patient. Pulse ox on. NIBP on. 09:38 Lumbar Spine (3 Views) XRAY In Process Unspecified. EDMS 10:34 Yuniel Callejas MD is Referral Physician. pm1 10:51 No provider procedures requiring assistance completed. Patient did not have IV access jd3 during this emergency room visit. Administered Medications: 09:18 Drug: Lidoderm Patch 5 % (700 mg/patch) 1 patches Route: Topical; Site: affected area; jd3 10:10 Follow up: Response: No adverse reaction jd3 09:18 Drug: Flexeril (cyclobenzaprine) 10 mg Route: PO; jd3 10:10 Follow up: Response: No adverse reaction jd3 09:18 Drug: Decadron (dexamethasone) 10 mg Route: IM; Site: right deltoid; jd3 10:10 Follow up: Response: No adverse reaction jd3 09:18 Drug: Avon (HYDROcodone-acetaminophen) 10 mg-325 mg 1 tabs Route: PO; jd3 10:10 Follow up: Response: No adverse reaction; RASS: Alert and Calm (0) jd3 10:44 Drug: Ketorolac 60 mg Route: IM; Site: left deltoid; jd3 10:59 Follow up: Response: No adverse reaction jd3 Outcome: 10:34 Discharge ordered by . pm1 10:59 Discharged to home ambulatory, with family. jd3 10:59 Condition: stable 10:59 Discharge instructions given to patient, family, Instructed on discharge instructions, follow up and referral plans. medication usage, Demonstrated understanding of instructions, follow-up care, medications, Prescriptions given X 3. 10:59 Patient left the ED. jd3 Signatures: Dispatcher [employer] EDMS Jose A Vega NP NUCLEAR EQUIPMENT DESIGN ENGINEER pm1 Ml [id number] Rex Balderas RN RN jd3
[2022-02-01] MEDS ORDERED: KETOROLAC 30 MG/ML INJ ONE (10:47)
[2022-02-01 11:08] VITALS: TEMP 98.6; O2SAT 100
[2022-02-01 11:09] VITALS: BP 153/96
== END 2022-02-01 10:59 | disposition home or self-care (01) ==
LOC: ER 08:40
DX: M54.41 Lumbago with sciatica, right side (principal); E78.00 Pure hypercholesterolemia, unspecified; F41.9 Anxiety disorder, unspecified; I10 Essential (primary) hypertension; K21.9 Gastro-esophageal reflux disease without esophagitis; Z87.891 Personal history of nicotine dependence; Z88.8 Allergy status to other drugs, medicaments and biological substances
CPT/HCPCS: 72100; 96372; 99284; J1100